=== PATIENT | female | born 1980 | race Caucasian/White ===

== ENCOUNTER 2024-06-22 10:30 | Emergency (ER) | payer MEDICAID, SELFPAY ==
[2024-06-22 10:55] VITALS: BP 153/94; PULSE 88; TEMP 36.8; O2SAT 98
[2024-06-22 11:20] LABS: Influenza Virus A Antigen Negative; Influenza Virus B Antigen Negative; Internal Control Within Normal Limits; SARS-CoV-2 Ag NEGATIVE (NEGATIVE)
--- NOTE | 2024-06-22 12:06 | ED.GENADUL1 ---
HPI HPI - General Adult General Chief complaint: Upper Respiratory Infection Stated complaint: FLU SYMTPOMS Time Seen by Provider: 06/22/24 10:32 Source: patient Mode of arrival: walk-in History of Present Illness HPI narrative: Patient presents ED complaining of upper respiratory symptoms. She states her kids tested positive for influenza A over the weekend. She started getting symptoms on Thursday night. She did not do any home COVID test. She has been taking [id number] medication. She said then her kids were diagnosed with bronchitis and placed on inhalers and steroids. They have been doing better but she seems to be doing worse now. Her symptoms started much later than there is however. She is alert and oriented no acute distress. She does complain of sore throat headache from coughing body aches as well. She had some nausea vomiting on Thursday but she has not today. No fever here. No abdominal pain no back pain. Patient denies any productive cough. Related Data Previous Rx's ?Medication ?Instructions ?Recorded albuterol sulfate 90 mcg/actuation 1 inh inhalation Q6H PRN shortness 06/22/24 aerosol inhaler of breath or wheezing #8.5 grams methylprednisolone 4 mg tablets in 4 mg PO DAILY #21 ea 06/22/24 a dose pack (Medrol (Parth)) Allergies Allergy/AdvReac Type Severity Reaction Status Date / Time No Known Drug Allergies Allergy Verified 06/22/24 10:54 Opioid HPI Opioid Management Most Recent Opioid Data: No Data to Display Review of Systems ROS Status of ROS 10 or more systems reviewed and unremarkable except as noted in history and below PFSH PFSH Social History Little interest or pleasure in doing things: not at all Feeling down, depressed, or hopeless: not at all Exam Narrative Exam Narrative: Time Seen: [] Vital Signs: [Per nurse's notes.] General: [Alert] Skin: [Warm, dry, no rash.] Head: [Normocephalic, atraumatic.] Neck: [Supple, trachea midline.] Eye: [Pupils are equal, round and reactive to light, extraocular movements are intact, normal conjunctiva.] Ears, nose, mouth and throat: oral mucosa moist. Mild posterior pharynx erythema Cardiovascular: [Regular rate and rhythm, no murmur.] Respiratory: [Lungs are clear to auscultation, respirations are non-labored, breath sounds are equal.] Chest wall: [No tenderness, no deformity.] Gastrointestinal: [Soft, nontender, non distended, normal bowel sounds.] MSK: 5 out of 5 muscle strength x 4 extremities no calf pain or edema Lymphatics: [No lymphadenopathy.] Psychiatric: [Cooperative, appropriate mood & affect.] Neurological: [Alert and oriented to person, place, time, and situation, no focal neurological deficit observed.] Constitutional Vital Signs, click to edit/add: Last Vital Signs Temp 98.2 F 06/22/24 10:55 Pulse 88 06/22/24 10:55 Resp 20 06/22/24 10:55 BP 153/94 H 06/22/24 10:55 Pulse Ox 98 06/22/24 10:55 O2 Del Method Room Air 06/22/24 10:55 Course Vital Signs Vital signs: Vital Signs Temperature 98.2 F 06/22/24 10:55 Pulse Rate 88 06/22/24 10:55 Respiratory Rate 20 06/22/24 10:55 Blood Pressure 153/94 H 06/22/24 10:55 Pulse Oximetry 98 06/22/24 10:55 Oxygen Delivery Method Room Air 06/22/24 10:55 Temperature 98.2 F 06/22/24 10:55 Pulse Rate 88 06/22/24 10:55 Respiratory Rate 20 06/22/24 10:55 Blood Pressure 153/94 H 06/22/24 10:55 Pulse Oximetry 98 06/22/24 10:55 Oxygen Delivery Method Room Air 06/22/24 10:55 Medical Decision Making [facility] Narrative Medical decision making narrative: Flu and COVID are negative. Most likely it is influenza A with a falsely negative test. She had close contact with known positive patients. Patient is out of the time window for Tamiflu. Patient will be started on steroids and an albuterol inhaler. Take [id number] medications as well. Return to ED if worsening symptoms otherwise follow-up with your family doctor as needed. Differential Diagnosis Differential Diagnosis: Flu COVID bronchitis Lab Data Lab results reviewed: Yes I reviewed the patient's lab results Labs: Lab Results 06/22/24 Range/Units 11:00 Influenza Type A Ag Negative Influenza Type B Ag Negative SARS-CoV-2 Ag (CV2AG) Negative (NEGATIVE) Discharge Plan Discharge Chief Complaint: Upper Respiratory Infection Clinical Impression: Upper respiratory infection Patient Disposition: Home, Self-Care Time of Disposition Decision: 11:54 Condition: Good Mode of Transportation: Private Vehicle Prescriptions / Home Meds: New albuterol sulfate 90 mcg/actuation HFA aerosol inhaler 1 inh inhalation Q6H PRN (Reason: shortness of breath or wheezing) Qty: 8.5 0RF methylprednisolone [Medrol (Parth)] 4 mg tablets,dose pack 4 mg PO DAILY Qty: 21 0RF Rx Instructions: disp and use as directed Print Language: [place] Islander Instructions: Acute Bronchitis (ED) Referrals: MARILIA LIVINGSTON [Primary Care Provider] - 1 week
== END 2024-06-22 12:09 | disposition home or self-care (01) ==
PROVIDERS: Emergency Provider Emergency Medicine; PCP Family Medicine
DX: J06.9 Acute upper respiratory infection, unspecified (principal)
CPT/HCPCS: 87804; 87811; 99283

== ENCOUNTER 2024-12-18 08:13 | Emergency (ER) | payer MEDICAID, SELFPAY ==
[2024-12-18 08:15] VITALS: BP 171/102; PULSE 103; O2SAT 100
--- OUTSIDE RECORDS SUMMARY | 2024-12-18 08:26 | XMS_ITS | Encounter Summary ---
Author Organization [facility] [employer] Sys [employer] Address [facility] [place]-[id number] [place] [address] Care Team Providers Care Buffer Copper Name Role Phone Saurabh Ward MD Primary Care Provider [phone] Encounter Details Date Type Department Care Team (Late st Contact Info) Description 05/26/2020 Orders Only [facility] [address] [place] [address] External, Scanning Provider Social History Tobacco Use Types Packs/Day Years Used Date Smoking Tobacco: Former Smokeless Tobacco: Never Alcohol Use Standard Drinks/Week Comments No 0 (1 standard drink = 0.6 oz pur e alcohol) Childcare Answer Date Recorded Childcare Unknown 10/20/2018 Employment Answer Date Recorded Employment Unknown 10/20/2018 Purpose - Life Answer Date Recorded Purpose and direction in life Unknown Comments No Sex and Gender Information Value Date Recorded Sex Assigned at Not on file Legal Sex Female 11:47 AM EDT Gender Identity Not on file Sexual Orientation Not on file documented as of this encounter Plan of Treatment Not on file documented as of this encounter Procedures Procedure Name Priority Date/Time Associated Diagnosis Comments SARS COV 2 (COVID-19) Routine 05/25/2020 documented in this encounter Results * SARS COV 2 (COVID-19) (05/25/2020) EXTERNAL SARS COV 2 Negative Negative MANUALLY TRANSCRIBED RESULTS NASOPHARYNGEAL 05/25/2020 Narrative MANUALLY TRANSCRIBED RESULTS - 05/25/2020 DONE [facility] Scanning Provider External MICROBIOLOGY - GENERA L ORDERABLES Final Result MANUALLY TRANSCRIBED RESULTS documented in this encounter Visit Diagnoses Not on filedocumented in this encounter Care Teams Buffer Copper Relationship Specialty Start Date End Date Saurabh Ward MD [address] Provider retired 08/09/24 [place] [address] PCP - General Family Medicine 06/25/16 08/11/21 documented as of this encounter
--- OUTSIDE RECORDS SUMMARY | 2024-12-18 08:26 | XMS_ITS | Encounter Summary ---
Author Organization [facility] [employer] Address [facility] [id number] [address] [place] [address] Care Team Providers Care Hand Blocker Name Role Phone Saurabh Ward MD Primary Care Provider [phone] Encounter Details Date Type Department Care Team (Late st Contact Info) Description 01/29/2021 Orders Only [facility] [address] [place] [address] External, Scanning Provider Social History [...] Associated Diagnosis Comments SARS COV 2 (COVID-19) STAT 01/28/2021 documented in this encounter Results * SARS COV 2 (COVID-19) (01/28/2021) EXTERNAL SARS COV 2 Negative Negative MANUALLY TRANSCRIBED RESULTS NASOPHARYNGEAL 01/28/2021 Narrative MANUALLY TRANSCRIBED RESULTS - 01/28/2021 DONE AT URGENT CARE us Scanning Provider External MICROBIOLOGY - GENERA L ORDERABLES Final Result MANUALLY TRANSCRIBED RESULTS documented in this encounter Visit Diagnoses Not on filedocumented in this encounter Care Teams Hand Blocker Relationship Specialty Start Date End Date Saurabh Ward MD [address] Provider retired 08/09/24 [place] [address] PCP - General Family Medicine 06/25/16 08/11/21 documented as of this encounter
--- OUTSIDE RECORDS SUMMARY | 2024-12-18 08:26 | XMS_ITS | CCD ---
Author Organization [facility] Care Team Providers Care Panelboard Tank Pumper Name Role Phone ALESHA, BUFFY Unavailable Unavailable ALESHA, BUFFY Unavailable Unavailable NONE, XXXX Unavailable Unavailable ALESHA, BUFFY Unavailable Unavailable ALESHA, BUFFY Unavailable Unavailable NONE, XXXX Unavailable Unavailable ALESHA, BUFFY Unavailable Unavailable NONE, XXXX Unavailable Unavailable Arpita Payne Unavailable Joanne Blandon Unavailable DR MARILIA LIVINGSTON Primary Care Unavailable JUAN DIEGO [place] Admitting Unavailable JUAN DIEGO [place] Attending Unavailable JUAN DIEGO [place] Consulting Unavailable Medications Current Medications Medication Drug Class(es) Dates Sig (Normalized) Sig (Original) cetirizine hydrochloride 10 mg oral tablet (1 source) Histamine-1 Receptor Antagonist Start: 08-09-2021 take 1 tablet by mouth every twenty-four hours Cetirizine HCl 10 MG 1 tablet Orally Once a day for 30 day(s) Aug, Active fluticasone propionate 0.05 mg/actuat metered dose nasal spray (1 source) Corticosteroid Start: 08-09-2021 take 1 spray(s) nasal route once daily Fluticasone Propionate 50 MCG/ACT 1 spray in each nostril Nasally Once a day for 14 day(s) Aug, Active predniSONE 20 mg oral tablet (1 source) Start: 12-01-2021 take 1 tablet by mouth every twelve hours predniSONE 20 MG 1 tablet Orally 2 times a day for 5 day(s) Nov, Active Problems Active Problems Problem Classification Problem Date Documented Da te Episodic/Chronic Headache; including migraine (4 sources) Headache; including migraine; Translations: [HEADACHE UNSPECIFIED] Onset: 11-30-2021 Other upper respiratory disease (1 source) Nasal congestion; Translations: [NASAL CONGESTION] Onset: 12-02-2021 Episodic Residual codes; unclassified (1 source) Procedure and treatment not carried out due to patient leaving prior to being seen by health care provider; Translations: [PROC AND TX NOT CARRIED OUT PT LEAVE] Onset: 12-02-2021 Episodic Viral infection (1 source) COVID-19; Translations: [COVID-19] Onset: 12-02-2021 Past or Other Problems Problem Classification Problem Date Documented Date Episodic/Chronic Immunizations and screening for infectious disease (1 source) Contact with and (suspected) exposure to other viral communicable diseases Onset: 12-01-2021 Resolved: 12-01-2021 Episodic Otitis media and related conditions (1 source) Other acute nonsuppurative otitis media, unspecified ear Onset: 08-09-2021 Resolved: 08-09-2021 Episodic Results Test Name Value Interpretation Reference Range Facility COVID Quick Testingon 2021 Result Positive [facility] Other Quick Fluon 12-01-2021 FLUAV Ab CF (S) [Titer] Negative [facility] Other FLUBV Ab CF (S) [Titer] Negative [facility] Other Covid-19 PCR ([facility])on 11-09 SARS-CoV-2 (COVID-19) RNA LYNDON+probe Ql (Unsp spec) Detected Critically abnormal NOT DETECTED [facility] Comment on above: Result Comment: This test is not yet approved or cleared by the [place] FDA. When there are no FDA-approved or cleared tests available, and other criteria are met, FDA can make tests available under an emergency access mechanism called an Emergency Use Authorization (EUA). The EUA for this test is supported by the [employer] Supervisor of Health and Human Service's declaration that circumstances exist to justify the emergency use of in vitro diagnostics for the detection and/or diagnosis of the virus that causes COVID-19. This EUA will remain in effect for the duration of the COVID-19 declaration justifying emergency of IVDs, unless it is terminated or revoked by the FDA (after which the test may no longer be used). Performed By: #### C [facility] #### [facility] [address] [place] [address] Dr. Shabnam Hunter ER URINE PROFILEon 2 Bilirubin Ql (U) Negative Normal NEGATIVE [facility] Comment on above: Performed By: #### P REGU UMICRO, ERUR #### [facility] [address] [address] [address] Shabnam Hunter Clarity (U) CLEAR Normal CLEAR [facility] Comment on above: Performed By: #### P REGU UMICRO, ERUR #### [facility] [address] [address] [address] Shabnam Hunter Color (U) LT. YELLOW Normal YELLOW [facility] Comment on above: Performed By: #### P REGU UMICRO, ERUR #### [facility] [address] [place] [address] Dr. Shabnam ZALDIVAR A micrscopic examination will be performed if indicated. Normal [facility] Comment on above: Performed By: #### P REGU UMICRO, ERUR #### [facility] [address] [address] [address] Shabnam Hunter Glucose Ql (U) Negative Normal NEGATIVE [facility] Comment on above: Performed By: #### P REGU UMICRO, ERUR #### [facility] [address] [address] [address] Shabnam Hunter Hemoglobin Ql (U) MODERATE Abnormal NEGATIVE [facility] Comment on above: Performed By: #### P REGU UMICRO, ERUR #### [facility] [address] [address] [address] Shabnam Hunter Ketones Ql (U) Negative Normal NEGATIVE [facility] Comment on above: Performed By: #### P REGU UMICRO, ERUR #### [facility] [address] [place] [address] Dr. Shabnam Hunter LEUKOCYTES TRACE Abnormal NEGATIVE [facility] Comment on above: Performed By: #### P REGU UMICRO, ERUR #### [facility] [address] [address] [address] Shabnam Hunter Nitrite Ql (U) Negative Normal NEGATIVE [facility] Comment on above: Performed By: #### P REGU, UMICRO, ERUR #### [facility] [address] [address] [address] Shabnam Hunter pH (U) 7.0 [pH] Normal 5-9 [facility] Comment on above: Performed By: #### P REGU, UMICRO, ERUR #### [facility] [address] [place] [address] Dr. Shabnam Hunter SPEC GRAVITY 1.010 Normal 1.005-<=1.025 [facility] Comment on above: Performed By: #### P REGU UMICRO, ERUR #### [facility] [address] [place] [address] Dr. Shabnam Hunter UA PROTEIN Negative Normal NEGATIVE/ TRACE [facility] Comment on above: Performed By: #### P REGU UMICRO, ERUR #### [facility] [address] [place] [address] Dr. Shabnam Hunter UR MICRO IND INDICATED Normal [facility] Comment on above: Performed By: #### P REGU UMICRO, ERUR #### [facility] [address] [place] [address] Dr. Shabnam Hunter Urobilinogen Qn (U) 0.2 {Levy'U}/dL Normal 0.2 - 1.0 [facility] Comment on above: Performed By: #### P REGU UMICRO, ERUR #### [facility] [address] [place] [address] Dr. Shabnam Hunter URon 11-30-2021 , QUAL Negative Normal NEGATIVE [facility] Comment on above: Performed By: #### P REGU UMICRO, ERUR #### [facility] [address] [place] [address] Dr. Shabnam Hunter URINE MICROSCOPIC ONLYon BACTERIA NONE SEEN Normal NONE SEEN [facility] Comment on above: Performed By: #### P REGU, UMICRO, ERUR #### [facility] [address] [place] [address] Dr. Shabnam Hunter Bacteria identified Cx Nom (U) NOT INDICATED Normal [facility] Comment on above: Performed By: #### P DAVE DONOHUERO, ERUR #### [facility] [address] [place] [address] Dr. Shabnam Hunter CAST NONE SEEN Normal NONE SEEN [facility] Comment on above: Performed By: #### P REGRaz UMICRO, ERUR #### [facility] [address] [address] [address] Shabnam Hunter Crystals LM Nom (Urine sed) NONE SEEN Normal NONE SEEN [facility] Comment on above: Performed By: #### P MARY DONOHUEICRO, ERUR #### [facility] [address] [place] [address] Dr. Shabnam Hunter Epithelial cells LM Ql (Urine sed) RARE Normal NONE SEEN /RARE [facility] Comment on above: Performed By: #### P REGMARY CrandallICRO, ERUR #### [facility] [address] [place] [address] Dr. Shabnam Hunter MUCOUS NONE SEEN Normal NONE SEEN [facility] Comment on above: Performed By: #### P DAVE DONOHUERO, ERUR #### [facility] [address] [place] [address] Dr. Shabnam Hunter RBC 2-5 Abnormal 0-2 [facility] Comment on above: Performed By: #### P ДМИТРИЙ DONOHUE, ERUR #### [facility] [address] [place] [address] Dr. Shabnam Hunter WBC 0-2 Abnormal NONE SEEN [facility] Comment on above: Performed By: #### P CHARANJIT UMICRO, ERUR #### [facility] [address] [place] [address] Dr. Shabnam Hunter U24 Proteinon 12-19-2016 ALBUMIN/PROTEIN.T OTAL:MFR:PT:URINE :QN:ELECTROPHORES IS 9.2 mg/dL Invalid Interpretation Code [facility] Comment on above: Result Comment: The reference range and other method performance specifications have not been established for this test; results should be integrated into the clinical context for interpretation. Performed By: #### 2 [id number], [id number] ####[id number] [place] [address] PROTEIN:MCNC:24H: URINE:QN: 133 mg/24hr Normal 28-141 [facility] Comment on above: Performed By: #### 2 [id number], [id number] ####[address] [address] U24 Total Volon 12-19-2016 Hrs Nury 24 hour(s) Invalid Interpretation Code [facility] Comment on above: Order Comment: Order added by Discern Expert Performed By: #### 2 [id number], [id number] ####[address] [address] SPECIMEN VOLUME:VOL:XXX:UR INE:QN: 1450 mL Invalid Interpretation Code [facility] Comment on above: Order Comment: Order added by Discern Expert Performed By: #### 2 [id number], [id number] ####[address] [address] Coding Summary.on 12-09-2016 Coding Summary. CODING DATE: 12/09/2016 FINAL [facility] STATUS: Home (Routine DC) PAYOR: Medicaid ADMIT DX: REASON FOR VISIT DX: O13.9 Gestational [-induced] hypertension without significant proteinuria, unspecified trimester FINAL DX: PRINCIPAL: O13.9 Gestational [-induced] hypertension without significant proteinuria, unspecified trimester SECONDARY: PROCEDURES DOCTOR NAME DATE NOTE: The code number assigned matches the documented diagnosis and / or procedure in the patient's chart. However, the narrative phrase printed from the coding software may appear abbreviated, or result in slightly different terminology. Coded By: Whit Rodrigues Date Saved: 12/09/2016 07:43 am Normal [facility] U24 Proteinon 12-06-2016 ALBUMIN/PROTEIN.T OTAL:MFR:PT:URINE :QN:ELECTROPHORES IS 17.9 mg/dL Invalid Interpretation Code [facility] Comment on above: Result Comment: The reference range and other method performance specifications have not been established for this test; results should be integrated into the clinical context for interpretation. Performed By: #### 2 [id number], [id number] ####[facility] [id number] [place] [address] PROTEIN:MCNC:24H: URINE:QN: 249 mg/24hr High 28-141 [facility] Comment on above: Performed By: #### 2 [id number], [id number] ####[address] [address] U24 Total Volon 12-06-2016 Hrs Nury 24 hour(s) Invalid Interpretation Code [facility] Comment on above: Order Comment: Order added by Discern Expert Performed By: #### 2 [id number], [id number] ####[address] [place] [address] SPECIMEN VOLUME:VOL:XXX:UR INE:QN: 1390 mL Invalid Interpretation Code [facility] Comment on above: Order Comment: Order added by Discern Expert Performed By: #### 2 [id number], [id number] ####[address] [address] Vital Signs Date Time Vital Sign Value Performing Clinician Facility 12-01-2021 10:15-0400 Body height 180.34 cm Joanne Blandon Other [facility] Other 12-01-2021 10:15-0400 Body mass index (BMI) [Ratio] 30.68 kg/m2 Joanne Blandon Other [facility] Other 12-01-2021 10:15-0400 Body temperature 99.8 [degF] Joanne Blandon Other [facility] Other 12-01-2021 10:15-0400 Body weight 99.79 kg Joanne Blandon Other [facility] Other 12-01-2021 10:15-0400 Respiratory rate 18 /min Joanne Blandon Other [facility] Other 12-01-2021 10:15-0400 SaO2% (BldA) [Mass fraction] 97 % Joanne Blandon Other [facility] Other 08-09-2021 15:25-0400 Body height 180.34 cm Arpita Payne Other [facility] Other 08-09-2021 15:25-0400 Body mass index (BMI) [Ratio] 29.01 kg/m2 Arpita Payne Other [facility] Other 08-09-2021 15:25-0400 Body temperature 97.7 [degF] Arpita Payne Other [facility] Other 08-09-2021 15:25-0400 Body weight 94.35 kg Arpita Payne Other [facility] Other 08-09-2021 15:25-0400 Diastolic blood pressure 84 mm[Hg] Arpita Payne Other [facility] Other 08-09-2021 15:25-0400 Respiratory rate 18 /min Arpita Payne Other [facility] Other 08-09-2021 15:25-0400 SaO2% (BldA) [Mass fraction] 99 % Arpita Payne Other [facility] Other 08-09-2021 15:25-0400 Systolic blood pressure 147 mm[Hg] Arpita Payne Other [facility] Other Encounters Encounter Date Encounter Type Care Provider Facility Start: 12-01-2021 End: 07-24-2022 ambulatory Joanne Blandon Other [facility] Other Start: 12-01-2021 Office outpatient vi sit 15 minutes Joanne Blandon [facility] Start: 11-30-2021 End: 11-30-[address] MARILIA LIVINGSTON Facility: Start: 08-09-2021 End: 08-09-2021 ambulatory Arpita Payne Other [facility] Other Start: 08-09-2021 Office outpatient vi sit 15 minutes Arpitahonorio Payne [facility] Start: 12-19-2016 End: 12-20-2016 Ambulatory [place]FF[place] [place]: 12-06-2016 End: 12-07-2016 Ambulatory [facility] [place] [place] Payers Date Payer Category Payer Unknown [id number] 1980 Unknown [id number] 1958 Unknown [id number] Social History Date Type Detail Facility Unknown if ever smoked [facility] Other Sex Assigned At Sex Assigned At Bir th [facility] Other Evaluation note 12-01-2021 Note Date & Type Note Facility 12-01-2021 Evaluation note Encounter Date Diagnosis Assessment Notes Nov, Contact with and (suspected) exposure to other viral communicable diseases (ICD-10 - Z20.828) Discharge Instructions for COVID-19 (Suspected or Confirmed ) material was printed Drink plenty fluids, get plenty of rest. Take Tylenol or Motrin for aches pains or fevers. Take the prednisone as prescribed until gone. Follow-up with your family physician if no improvement in 2 to 3 days. You must quarantine for 5 days after the onset of your symptoms of COVID [facility] Other Evaluation note 08-09-2021 Note Date & Type Note Facility 08-09-2021 Evaluation note Encounter Date Diagnosis Assessment Notes Aug, Acute otitis media with effusion (ICD-10 - H65.199) Rx sent, use as directed. Nothing in affected ear or submerging head under water until resolution of s/s. Immediate eval if warning s/s of intractable pain, fevers, hearing loss, ear drainage. Otherwise f/u in 1 week if s/s persists or worsens despite tx. Pt verbalizes understanding and agrees with tx plan. Aug, Other Due to infection control protocols for COVID-19 virus, direct physical contact with patient was limited to only the absolute essential needed assessments. [facility] Other Summary Purpose Family History No Family History Records FoundNo Family History Records Found Advance Directives No Advanced Directives Records FoundNo Advanced Directives Records Found Additional Source Comments INFORMATION SOURCE (unrecogn ized section and content) DATE CREATED AUTHOR 11/04/2017 Juan Antonio [facility] DATE CREATED AUTHOR AUTHOR'S ORGANIZ ATION 12/02/2021 [facility] REASON FOR VISIT (unrecogniz ed section and content) RIGHT EARACHEWHITE EQUINOX, HEADACHE, NASAL CONGESTION, BODYACHES X 2 DAYS FOR RECORDS PERTAINING TO PATIENTS WHO ARE OR HAVE BEEN ENROLLED IN A CHEMICAL DEPENDENCY/SUBSTANCEABUSE PROGRAM, SOME INFORMATION MAY BE OMITTED. This clinical summary was aggregated from multiple sources. Caution should be exercised in using it in the provision of clinical care. This summary normalizes information from multiple sources, and as a consequence, information in this document may materially change the coding, format and clinical context of patient data. In addition, data may be omitted in some cases. CLINICAL DECISIONS SHOULD BE BASED ON THE PRIMARY CLINICAL RECORDS. [email or web address] provides no warranty or guarantee of the accuracy or completeness of information in this document.
--- OUTSIDE RECORDS SUMMARY | 2024-12-18 08:26 | XMS_ITS | Clinical Summary ---
Author Organization [facility] Address [address] [place] [address] Care Team Providers Care Manager Support Services Name Role Phone Unavailable Primary Care Provider Unavailabl e Social History Tobacco Use Types Packs/Day Years Used Date Smoking Tobacco: Never Assessed Comments Unknown Sex and Gender Information Value Date Recorded Sex Assigned at Not on file Legal Sex Female 11:47 PM EDT Gender Identity Not on file Sexual Orientation Not on file Plan of Treatment Not on file
[2024-12-18 08:42] LABS: Hematocrit 42.4 % (36.0-48.0); Hemoglobin 14.2 g/dL (12.0-16.0); Immature Granulocytes Abs Auto 0.02 10^3/uL (0.00-0.03); Immature Granulocytes Pct Auto 0.3 % (0.0-0.5); Lymphocytes Absolute Auto 1.8 10^3/uL (1.2-3.8); Mean Corpuscular HGB Conc 33.5 g/dL (29.9-35.2); Mean Corpuscular Hemoglobin 30.5 pg (26.7-34.0); Mean Corpuscular Volume 91.2 fL (81.0-99.0); Platelet Count 274 10^3/uL (150-450); Red Blood Count 4.65 10^6/uL (4.20-5.40); White Blood Count 7.1 10^3/uL (4.0-11.0)
--- NOTE | 2024-12-18 08:47 | ED.GENADUL1 ---
HPI HPI - General Adult General Chief complaint: Skin/Abscess/Foreign Body Stated complaint: RASH Time Seen by Provider: 12/18/24 08:20 Source: patient Mode of arrival: walk-in History of Present Illness HPI narrative: The patient is a 44-year-old female with no significant known past medical history, patient is coming to us with a rash that she developed in the right just below the breast almost 2 days ago and today this morning she noted a rash in the back toward the scapular area that is painful, patient mentioned that yesterday she had some tenderness there but there was no rash did check her up for that yesterday but today she did had a rash. There was no fever chills or any other concerns Related Data Previous Rx's ?Medication ?Instructions ?Recorded diclofenac sodium 75 mg 75 mg PO BID PRN pain #20 tabs 12/18/24 tablet,delayed release valacyclovir 1 gram tablet 1,000 mg PO Q8H 10 days #30 tabs 12/18/24 (Valtrex) Allergies Allergy/AdvReac Type Severity Reaction Status Date / Time No Known Drug Allergies Allergy Verified 06/22/24 10:54 Opioid HPI Opioid Management Most Recent Opioid Data: Last JUL Pain Assessment Today, 09:00 Review of Systems ROS Status of ROS 10 or more systems reviewed and unremarkable except as noted in history and below PFSH PFSH Social History Little interest or pleasure in doing things: not at all Feeling down, depressed, or hopeless: not at all Exam Narrative Exam Narrative: Nurses notes and vital signs reviewed and patient is not hypoxic. General: Well-appearing and in no apparent distress. Skin: The patient presented to us with a papular vesicular rash just below the right breast as well as on the posterior aspect of the scapular area, the rash is also at the mid axillary line on the right side it is limited to this area showing atypical vesicular rash Head: Normocephalic, atraumatic. Neck: Supple, non-tender. Eye: Pupils are equal, round and EOMI. No scleral icterus. Cardiovascular: Regular Rate and Rhythm without murmur, gallop or rub. Respiratory: No accessory muscle use or respiratory distress. Lungs are clear to auscultation, no wheezing, rales or rhonchi Back: No midline thoracic or lumbar vertebral tenderness. No CVA tenderness Musculoskeletal: normal ROM, no calf or popliteal tenderness, no lower extremity edema/swelling GI: Abdomen is soft, non-distended. Normal bowel sounds. No masses appreciated. No tenderness to palpation. No rebound, guarding, or rigidity noted. Neurological: A&O x4. No cranial nerve dysfunction observed. No truncal ataxia. Moves all extremities. Sensation intact. Psychiatric: Cooperative and interactive. Normal mood and affect. Constitutional Vital Signs, click to edit/add: Last Vital Signs Pulse 103 H 12/18/24 08:15 Resp 18 12/18/24 08:15 BP 171/102 H 12/18/24 08:15 Pulse Ox 100 12/18/24 08:15 O2 Del Method Room Air 12/18/24 08:15 Course Vital Signs Vital signs: Vital Signs Pulse Rate 103 H 12/18/24 08:15 Respiratory Rate 18 12/18/24 08:15 Blood Pressure 171/102 H 12/18/24 08:15 Pulse Oximetry 100 12/18/24 08:15 Oxygen Delivery Method Room Air 12/18/24 08:15 Pulse Rate 103 H 12/18/24 08:15 Respiratory Rate 18 12/18/24 08:15 Blood Pressure 171/102 H 12/18/24 08:15 Pulse Oximetry 100 12/18/24 08:15 Oxygen Delivery Method Room Air 12/18/24 08:15 Medical Decision Making [facility] Narrative Medical decision making narrative: Patient presenting to us with a typical picture of shingles within the last 24 hours, patient CBC and chemistry showed no acute pathology and she had a negative test She was started on valacyclovir 3 times a day for the next 7 to 10 days in addition to Voltaren for pain provided with a Toradol in the ER The patient was instructed on hydration and avoiding drinking alcohol with the antiviral Also instructed about coming back in case of increasing symptoms ,fever or any new rash especially in the face The patient is to follow up with primary care physician in next 2-3 days or to return to the emergency department should any of the signs or symptoms worsen or new symptoms develop. The patient agrees with the following Diagnosis and Treatment plan and the patient will be discharged home. Lab Data Labs: Lab Results 12/18/24 Range/Units 08:37 WBC 7.1 (4.0-11.0) 10^3/uL RBC 4.65 (4.20-5.40) 10^6/uL Hgb 14.2 (12.0-16.0) g/dL Hct 42.4 (36.0-48.0) % MCV 91.2 (81.0-99.0) fL MCH 30.5 (26.7-34.0) pg MCHC 33.5 (29.9-35.2) g/dL RDW 12.8 (11.0-15.0) % Plt Count 274 (150-450) 10^3/uL MPV 10.7 (9.5-13.5) fL Neut % (Auto) 65.9 (43.0-75.0) % Lymph % (Auto) 25.2 (20.5-60.0) % [place] % (Auto) 6.9 (1.7-12.0) % Eos % (Auto) 1.4 (0.9-7.0) % Baso % (Auto) 0.3 (0.2-2.0) % Neut # (Auto) 4.7 (1.4-6.5) 10^3/uL Lymph # (Auto) 1.8 (1.2-3.8) 10^3/uL [place] # (Auto) 0.5 (0.3-0.8) 10^3/uL Eos # (Auto) 0.1 (0.0-0.7) 10^3/uL Baso # (Auto) 0.0 (0.0-0.1) 10^3/uL Abs Immat Gran (auto) 0.02 (0.00-0.03) 10^3/uL Imm/Tot Granulo (auto) 0.3 (0.0-0.5) % Sodium 138 (136-145) mmol/L Potassium 4.3 (3.5-5.1) mmol/L Chloride 104 (98-107) mmol/L Carbon Dioxide 25.1 (21.0-32.0) mmol/L Anion Gap 13.2 BUN 21.0 H (7.0-18.0) mg/dL Creatinine 0.67 (0.55-1.02) mg/dL Est GFR ( Amer) >60 (>=60 mL/min/1.73m^2) Est GFR (Non-Af Amer) >60 (>=60 mL/min/1.73m^2) BUN/Creatinine Ratio 31.3 Glucose 128 H (74-106) mg/dL Calcium 9.3 (8.5-10.1) mg/dL Total Bilirubin 0.8 (0.2-1.0) mg/dL AST 12 L (15-37) U/L ALT 22 (14-59) U/L Alkaline Phosphatase 46 (46-116) U/L Total Protein 7.9 (6.4-8.2) g/dL Albumin 3.9 (3.4-5.0) g/dL Globulin 4.0 g/dL Albumin/Globulin Ratio 1.0 Serum HCG, Qual Negative (NEGATIVE) Discharge Plan Discharge Chief Complaint: Skin/Abscess/Foreign Body Clinical Impression: Shingles rash Patient Disposition: Home, Self-Care Time of Disposition Decision: 08:47 Condition: Good Prescriptions / Home Meds: New valacyclovir [Valtrex] 1 gram tablet 1,000 mg PO Q8H 10 Days Qty: 30 0RF diclofenac sodium 75 mg tablet,delayed release (DR/EC) 75 mg PO BID PRN (Reason: pain) Qty: 20 0RF Print Language: Portuguese Instructions: Shingles (ED) Referrals: Physician,Non-Staff, MD [Primary Care Provider] - 1 week
[2024-12-18] MEDS: KETOROLAC TROMETHAMINE 30 MG/ML VIAL IM (09:00)
[2024-12-18 09:16] LABS: Alanine Aminotransferase 22 U/L (14-59); Albumin Globulin Ratio 1.0; Albumin Level 3.9 g/dL (3.4-5.0); Alkaline Phosphatase 46 U/L (46-116); Anion Gap 13.2; Aspartate Amino Transferase 12 U/L (15-37); Blood Urea Nitrogen 21.0 mg/dL (7.0-18.0); Calcium 9.3 mg/dL (8.5-10.1); Carbon Dioxide 25.1 mmol/L (21.0-32.0); Chloride 104 mmol/L (98-107); Estimated GFR (African America >60 (>=60 mL/min/1.73m^2); Estimated GFR (Non-African Ame >60 (>=60 mL/min/1.73m^2); Globulin 4.0 g/dL; Glucose 128 mg/dL (74-106); Potassium 4.3 mmol/L (3.5-5.1); Sodium 138 mmol/L (136-145); Total Protein 7.9 g/dL (6.4-8.2)
== END 2024-12-18 09:35 | disposition home or self-care (01) ==
PROVIDERS: Emergency Provider Emergency Medicine
DX: B02.9 Zoster without complications (principal)
CPT/HCPCS: 36415; 80053; 84703; 85025; 96372; 99284; J1885